=== PATIENT | male | born 1950 | race African-American/Black ===

== ENCOUNTER 2016-07-18 10:28 | Inpatient (IN) | payer MEDICARE ==
[~2016-07-18 10:28] MED LIST: Aspirin (Orange Enteric Coated) 325 mg tab PO SCH
--- NOTE | 2016-07-18 10:36 | EDPRACDOC ---
- General Information Chief Complaint: Neurological Deficit Present Stated Complaint: LEFT SIDE NUMBNESS Time Seen by Provider: 07/18/16 10:31 Home Medications: Home Medications Aspirin [Aspirin EC] 325 mg PO DAILY #100 tablet. 12/22/15 Atorvastatin Calcium [Lipitor] 10 mg PO HS #30 tablet 12/22/15 Amlodipine [Norvasc] 10 mg PO DAILY 06/02/16 Atenolol [Tenormin] 50 mg PO DAILY 07/18/16 Hydrochlorothiazide 12.5 mg PO DAILY 07/18/16 Prazosin HCl [Minipress] 1 mg PO TID 07/18/16 Allergies/Adverse Reactions: Allergies Allergy/AdvReac Type Severity Reaction Status Date / Time No Known Allergies Allergy Verified 07/18/16 10:52 - History of Present Illness Exact Onset of Symptoms: Unknown Date Symptoms Started: 07/17/16 Symptoms Started: Reports: Gradually Symptoms: Reports: Numbness (LEFT ARM AND LEFT LEG) Symptoms Description: Constant Symptom Severity: Reports: Does not affect activitiy Relevant History of: Reports: CVA HPI: PATIENT STATES HE NOTED NUMBNESS IN LEFT ARM AND LEG YESTERDAY. IT PERSISTED SO HE CALLED AN AMBULANCE TODAY. HE NOTES HE HAD SLURRED SPEECH INITIALLY BUT THAT THIS IMPROVED. HX OF COCAINE USE BUT DENIES RECENT USE. NO WEAKNESS. NO DIFFICULTY WALKING. ED Past Medical History - History Reviewed Yes Nurses notes reviewed and agree except as marked Travel Outside of [place] in the Last 3 Months?: No - Patient Medical History Neurological History: Reports: Cerebrovascular Accident (2009 WITH VALVE REPLACEMENT) Cardiac History: Reports: Atrial Fibrillation (Requiring cardioversion in 2013) , Hypertension, Congestive Heart Failure (EF 40% in October of 2011), Hypercholesterolemia, Valvular Heart Disease (AORTIC VALVE REPLACEMENT X 2). Denies: Cardiac Catheterization Respiratory History: Reports: Pneumonia (2015) GI/ History: Reports: Renal Disease (Chronic renal insufficiency) Musculoskeletal History: Reports: Arthritis Psychological History: Reports: Substance Use Disorder (History of cocaine abuse but none in years). Denies: Depression Systemic History: Denies: Cancer Additional Past Medical History: PAIN SYNDROMES Surgical History: Reports: Other (Aortic valve replacement x2). Denies: Cardiac Catheterization - Family Medical History Reports: Hypertension (MOM). Denies: Diabetes, Cancer, Stroke, Cardiac Disorders - Social Medical History Smoking Status: Never smoker Social History: Reports: Cocaine Use (Confidential), Substance Use Disorder ( History of cocaine abuse but none in years) Substance Abuse: Illicit Drugs Lives With: Family Lives In: Home EDM Review of Systems - Review of Systems ROS Negative Except as Marked: Yes All systems reviewed and were negative except as marked Constitutional: No Symptoms Reported. negative: Fever, Chills, Weakness, Fatigue, Loss of Appetite Eyes: No Symptoms Reported. negative: Redness, Blurred Vision, Double Vision, Discharge, Pain, Light Sensitive, Photophobia Ears: No Symptoms Reported. negative: Pain, Hearing Loss, Drainage, Ear Pulling Throat: No Symptoms Reported. negative: Pain, Swelling Nose: No Symptoms Reported. negative: Congestion, Bleeding, Discharge, Injection, Swelling, Deformity, Ecchymosis, Tender, Abrasion, Laceration Mouth: No Symptoms Reported. negative: Pain, Drooling Respiratory: No Symptoms Reported. negative: Cough, Brassy Cough, Barky Cough, Shortness of Breath, Wheezing, Hemoptysis Cardiovascular: No Symptoms Reported. negative: Chest Pain, Palpitations, Syncope, Edema, Orthopnea, PND, Skin Mottling, Cyanosis Gastrointestinal: No Symptoms Reported. negative: Pain, Constipation, Nausea, Vomiting, Diarrhea, Melena, Formula Intolerance Genitourinary: No Symptoms Reported. negative: Dysuria, Hematuria, Frequency, Discharge, Bleeding, Testicular Pain, Neurological: Numbness. negative: Dizziness, Gait Difficulty, Headache, Seizure , Speech Difficulty, Weakness Musculoskeletal: No Symptoms Reported. negative: Neck, Chestwall, Ribs, Back, Shoulder, Arm, Elbow, Forearm, Wrist, Hand, Pelvis, Hip, Femur, Knee, Leg, Ankle , Foot Integumentary: No Symptoms Reported. negative: Itching, Rash, Bruising, Wound Allergic/Immunologic: No Symptoms Reported. negative: Hives, Itching Hematologic: No Symptoms Reported. negative: Lymphadenopathy, Easy Bruising, Easy Bleeding Endocrine: No Symptoms Reported. negative: Weight Gain, Weight Loss Psychiatric: No Symptoms Reported. negative: Anxiety, Depression, Hallucinations, Insomnia, Suicidal - Physical Exam Constitutional: Alert (Awake), No apparent distress Oriented to: Time, Person, Place Last recorded Vital Signs: Oxygen Pulse Oxygen Saturation O2 Device Oxygen Flow Rate Fraction of Inspired Oxygen ( FIO2) - HEENT Head: Normal ( normocephalic) Eye Exam: Normal (PERRL, EOMI, Sclera white) Oropharynx: Normal (Pharynx:Moist without exudate,Gums-no swelling) Tympanic Membrane: Normal ENT EAC: Normal TMJ: Normal Nose: No Symptoms Reported (septum midline) Neck: Normal (FROM, trachea at midline) - Respiratory/Cardiovascular Respiratory: Normal - CTA (BBS clear to auscultation without adventitious sounds ) Cardiovascular: Normal (RRR without murmur, gallop or rub) - GI Auscultation: Normal (NABS) Palpation: Normal (Soft,No rebound or guarding, non distended) Tenderness: Non tender Del Rosario's Sign: Negative - Musculoskeletal Back: Normal (Non-Tender) Extremities: Normal (Normal tone, Pulses 2+ No cyanosis or edema, FROM) - Integumentary Skin: Normal, Warm, Dry Lymphatics: Normal (no adenopathy) - Neurologic Memory Impaired: Normal Motor Function: Normal (Normal tone, Pulses 2+ No cyanosis or edema, FROM) Cranial Nerve: Normal (CN II-X11 intact sensation, strength 5/5) Cerebellar: Normal Mood Description: Normal Perception: Normal NIH Stroke Scale Initial Evaluation Level of Consciousness: Alert LOC- Question: Answers Both Correctly LOC Commands: Both Task Correctly Best Gaze: Normal Visual: No Visual Loss Facial Palsy: Normal Movement Motor Arm LEFT: No Drift Motor Arm RIGHT: No Drift Motor Leg LEFT: No Drift Motor Leg RIGHT: No Drift Limb Ataxia: Absent Sensory: Mild to Mod Sensory Loss (POOR DULL/SHARP DISCRIMINATION IN LEFT ARM AND LEG) Best Language: No Aphasia Dysarthria: Normal Extinction and Inattention: No Abnormality (Neglect) Score: 1out of42 - Action Is patient a candidate for lytic therapy?: No Reason IV Thrombolytics Contraindicated: Other *free text (24 HOURS OLD) - Results 07/18/16 10:39 07/18/16 11:00 - EKG EKG #1 EKG Time: 10:53 -: Yes EKG interpreted by me Rate: bpm: 41 [place]: LAD Rhythm: SB Block: None Hypertrophy: LVH ST: Inf, Nonsp (FLIPPED T- WAVE INFERIOR) - Departure Yes I personally saw and evaluated the patient. Disposition: Admit IP To This Hospital Condition: Fair Final Diagnosis: Left sided numbness, CVA - cerebrovascular accident due to cerebral artery occlusion, Cocaine abuse Education/Counseling Given To: Patient Education/Counseling Given Regarding: Diagnosis, Treatment, Prognosis Decision to Admit Time: 12:36 Decision to admit date: 07/18/16 Decision to admit: from ED - Physician Consulted Hospitalist Time Called: 12:36 Provider Called: Deb Groves Time [employer] Returned Call: 12:37
[2016-07-18 10:54] LABS: AUTOMATED EOSINOPHIL 3.3 % (0-5); AUTOMATED LYMPH 16.4 % (17-44); AUTOMATED MONOCYTE 8.9 % (3-10); AUTOMATED NEUTROPHIL 70.4 % (45-76); MPV 10.2 fL (7.4-10.4)
[2016-07-18 11:07] LABS: PT-INR 1.1
[2016-07-18 11:23] LABS: BLOOD UREA NITROGEN 22 MG/DL (9-20); CALCIUM 9.1 MG/DL (8.4-10.2); CALCULATED OSMOLALITY 276 MOs/Kg (270-290); CHLORIDE 100 mEq/L (98-107); GLUCOSE 98 MG/DL (70-99); SODIUM LEVEL 142 mEq/L (137-146); TOTAL PROTEIN 7.1 G/DL (6.3-8.2)
[2016-07-18 11:23] LABS: ALL NEG? NO
[2016-07-18 11:33] LABS: MDMA* NEG (NEGATIVE); METHAMPHETAMINES NEG (NEGATIVE); OXYCODONE NEG (NEGATIVE)
[2016-07-18] MEDS ORDERED: ASPIRIN (CHEWABLE) 81 MG TAB PO ONE (11:52)
--- NOTE | 2016-07-18 12:09 | DIRPT ---
CLINICAL DATA: Shortness of breath EXAM: PORTABLE CHEST 1 VIEW COMPARISON: 12/20/2015 FINDINGS: Chronic cardiopericardial enlargement. The patient is status post median sternotomy for aortic valve repair. There is no edema, consolidation, effusion, or pneumothorax. Linear scar in the left mid lung. IMPRESSION: Stable exam. No evidence of acute cardiopulmonary disease. Electronically Signed By: Junior Carpenter M.D. On: 07/18/2016 12:06
--- NOTE | 2016-07-18 12:16 | DIRPT ---
CLINICAL DATA: Left-sided weakness and numbness for 2-3 days. EXAM: CT HEAD WITHOUT CONTRAST TECHNIQUE: Contiguous axial images were obtained from the base of the skull through the vertex without intravenous contrast. COMPARISON: 06/02/2016 FINDINGS: There is no acute intracranial hemorrhage or acute infarction or mass lesion. The parenchymal hemorrhage present on the prior exam has resolved. Chronic extensive periventricular white matter small vessel disease and old lacunar infarct in the left basal ganglia are again noted. No acute osseous abnormality. IMPRESSION: No acute abnormality. Old strokes. Extensive chronic small vessel ischemic disease. Resolution of parenchymal hemorrhage since the prior study. Electronically Signed By: Yosi Pastrana M.D. On: 07/18/2016 12:13
[2016-07-18] MEDS ORDERED: ENALAPRILAT 1.25 MG/ML VIAL IV ONE (12:32)
--- NOTE | 2016-07-18 13:28 | HISTPHYS ---
- Chief Complaint WEAKNESS, NUMBNESS - History of Present Illness Mr. Axel Merlos is a 66 year old Afro-[place]ron[place] man who presented to the ED with concerns about weakness and numbness in the left side of his face and left arm. He states that he had a bit of difficulty with his speech yesterday, finding the right words to say, but no slurred speech. He does think that his vision is not as good as it used to be, like he needs to get his glasses changed. These symptoms began sometime yesterday, although he recalls having a little blurred vision around [place] also. He denies any headache, dizziness or trauma. He has not had any loss of use of his arms or legs. - Medical History Cardiac History: Reports: Atrial Fibrillation (Requiring cardioversion in 2013) , Hypertension, Congestive Heart Failure (EF 40% in October of 2011), Hypercholesterolemia, Valvular Heart Disease (AORTIC VALVE REPLACEMENT X 2). Denies: Cardiac Catheterization Respiratory History: Reports: Pneumonia (2014) GI/ History: Reports: Renal Disease (Chronic renal insufficiency) Musculoskeletal History: Reports: Arthritis Systemic History: Denies: Cancer Neurological History: Reports: Cerebrovascular Accident (2009 WITH VALVE REPLACEMENT) Psychological History: Reports: Substance Use Disorder (History of cocaine abuse but none in years). Denies: Depression - Surgical History Reports: Other (Aortic valve replacement x2). Denies: Cardiac Catheterization - Medictions/Allergies Allergies No Known Allergies Allergy (Verified 07/18/16 10:52) Current Medication List: Reviewed Home Medications Aspirin [Aspirin EC] 325 mg PO DAILY #100 tablet. 12/22/15 Atorvastatin Calcium [Lipitor] 10 mg PO HS #30 tablet 12/22/15 Amlodipine [Norvasc] 10 mg PO DAILY 06/02/16 Atenolol [Tenormin] 50 mg PO DAILY 07/18/16 Hydrochlorothiazide 12.5 mg PO DAILY 07/18/16 Prazosin HCl [Minipress] 1 mg PO TID 07/18/16 - Family History Reports: Hypertension (MOM). Denies: Diabetes, Cancer, Stroke, Cardiac Disorders - Social History Travel Outside of US in the Last 3 Months?: No Lives: with Spouse Smoking Status: Never smoker Social History: Reports: Cocaine Use (Confidential), Substance Use Disorder ( History of cocaine abuse but none in years) - Review of Systems Constitutional: No Symptoms Reported Eyes: Blurred Vision Ears: No Symptoms Reported Nose: No Symptoms Reported Mouth: No Symptoms Reported Throat/Neck: No Symptoms Reported Respiratory: No Symptoms Reported Cardiovascular: No Symptoms Reported Gastrointestinal: No Symptoms Reported Genitourinary: No Symptoms Reported Neurological: Dizziness, Numbness (L side of face & L arm), Weakness (L arm) Musculoskeletal:: No Symptoms Reported Integumentary: No Symptoms Reported Allergic/Immunologic: No Symptoms Reported Hematologic: No Symptoms Reported Endocrine: No Symptoms Reported Psychiatric: No Symptoms Reported - Physical Exam Vital Signs: Initial Vitals Temperature 99.1 F 07/18/16 10:30 Pulse Rate 43 L 07/18/16 10:30 Respiratory Rate 18 07/18/16 10:30 Blood Pressure 176/99 07/18/16 10:30 Pulse Oxygen Saturation 98 07/18/16 10:30 Constitutional: No apparent distress, Alert, Well nourished, Well appearing Oriented to: Time, Person, Place - HEENT Head: Normal Eye: Normal (PERRL: EOMI) Oropharynx: Normal Tympanic Membrane: Normal ENT EAC: Normal Nose: No Symptoms Reported Respiratory: Normal - CTA Cardiovascular: Normal (regular rhythm and rate) - GI Auscultation: Normal Palpation: Normal Tenderness: Non tender Del Rosario's Sign: Negative Rectal Exam: Deferred - Musculoskeletal Back: Normal, No Palpable Step-off Extremities: Normal, Pedal Pulse (normal). negative: Clubbing, Cyanosis, Edema Spine: non-tender, full range of motion, normal alignment, normal inspection - Integumentary Skin: Warm, Dry Lymphatics: Normal - Neurologic Memory Impaired: Normal Motor Function: Normal (no motor deficit) Cranial Nerve: Normal Cerebellar: Normal Mood Description: Anxious Thought: Coherent Perception: Normal decreased sensation to light touch and 2 point discrimination on left side of face and L arm - Focused CV Perfusion Exam Vital Signs: Last Vital Signs Temp 99.1 F 07/18/16 10:30 Pulse 43 L 07/18/16 13:05 Resp 18 07/18/16 13:05 BP 187/96 H 07/18/16 13:05 Pulse Ox 97 07/18/16 13:05 - Lab Results Laboratory Tests 07/18/16 07/18/16 07/18/16 10:39 10:39 11:00 WBC 8.7 Hgb 15.8 Hct 46.3 Plt Count 175 Neut % (Auto) 70.4 Lymph % (Auto) 16.4 L [place] % (Auto) 8.9 PT 11.2 INR 1.1 APTT 25.0 Sodium 142 Potassium 3.7 Chloride 100 Carbon Dioxide 30 Anion Gap 16 BUN 22 H Creatinine 1.50 H Estimated GFR (MDRD) 57 L Glucose 98 Calculated Osmolality 276 Calcium 9.1 Troponin I < 0.01 C-Reactive Prot, Quant TSH Urine Cocaine Screen 07/18/16 07/18/16 07/18/16 11:00 11:05 14:20 WBC Hgb Hct Plt Count Neut % (Auto) Lymph % (Auto) [place] % (Auto) PT INR APTT Sodium Potassium Chloride Carbon Dioxide Anion Gap BUN Creatinine Estimated GFR (MDRD) Glucose Calculated Osmolality Calcium Troponin I C-Reactive Prot, Quant 5.9 TSH 1.44 Urine Cocaine Screen *positive* H 07/18/16 07/18/16 14:30 17:00 WBC Hgb Hct Plt Count Neut % (Auto) Lymph % (Auto) [place] % (Auto) PT INR APTT Sodium Potassium Chloride Carbon Dioxide Anion Gap BUN Creatinine Estimated GFR (MDRD) Glucose Calculated Osmolality Calcium Troponin I < 0.01 < 0.01 C-Reactive Prot, Quant TSH Urine Cocaine Screen - Diagnostic Findings CT HEAD: IMPRESSION: No acute abnormality. Old strokes. Extensive chronic small vessel ischemic disease. Resolution of parenchymal hemorrhage since the prior study. Electronically Signed By: Yosi Pastrana M.D. On: 07/18/2016 12:13 MRI HEAD: IMPRESSION: 1. Hemorrhagic infarct in the right thalamus is new since the prior MRI. Given the appearance of the CT scan and lack of significant restricted diffusion, this is less likely to be acute. It is more likely subacute to early chronic. 2. Progressive white matter changes in the left centrum semi ovale. 3. Advanced periventricular and subcortical white matter disease bilaterally likely reflects the sequela of chronic microvascular ischemia. 4. Remote lacunar infarcts of the cerebellum bilaterally are stable. These results were called by telephone at the time of interpretation on 07/18/2016 at 2:[address] MARIELENA SWAN MD, who verbally acknowledged these results. Electronically Signed By: Michoacano Mares M.D. On: 07/18/2016 14:45 CXR:FINDINGS: Chronic cardiopericardial enlargement. The patient is status post median sternotomy for aortic valve repair. There is no edema, consolidation, effusion, or pneumothorax. Linear scar in the left mid lung. IMPRESSION: Stable exam. No evidence of acute cardiopulmonary disease. Electronically Signed By: Junior Carpenter M.D. On: 07/18/2016 12:06 - Assessment (1) Cerebrovascular accident (CVA) with intracranial hemorrhage I61.9 - NONTRAUMATIC INTRACEREBRAL HEMORRHAGE, UNSPECIFIED Acute Present on Admission: Yes Patient initially thought to have an infarct, started on aspirin and Lovenox. Will discontinue these in the face of intracranial hemorrhage. 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 Needs to be maintained below 180, preferably below 170. Will start patient on NTP q 6H & IV Hydralazine PRN. Avoid Labetolol due to bradycardia, but NTG infusion or nitroprusside infusion OK if needed. Also IV Vasotec acceptable. (3) Cardiomyopathy I42.9 - CARDIOMYOPATHY, UNSPECIFIED Chronic Present on Admission: Yes Qualifiers: Cardiomyopathy type: ischemic Qualified Code(s): I25.5 - Ischemic cardiomyopathy Ejection fraction in the past noted to be 40-45% with mild diffuse hypokinesis. Monitor closely in the face of acute CVA. Patient had echocardiogram in December of 2015: ischemic cardiomyopathy, LVH, diastolic dysfunction. (4) Cocaine abuse F14.10 - COCAINE ABUSE, UNCOMPLICATED Chronic Present on Admission: Yes Patient states he use cocaine on the day prior to admission. This is likely cause of malignant hypertension leading to his stroke. He is dedicated to quitting cocaine use. Case Care Discussed with: Patient, Nursing Staff Total Time: 75 min Critical Care: Yes Couseling Time (>50% in counseling/coordination): Yes Code: 291
[2016-07-18] MEDS ORDERED: AMLODIPINE 10 MG TAB PO ONE (14:28)
[2016-07-18] MEDS ORDERED: HYDROCHLOROTHIAZIDE 12.5 MG CAP PO ONE (14:28)
[2016-07-18] MEDS ORDERED: hydrALAZINE 20 MG/ML VIAL IV ONE (14:34)
--- NOTE | 2016-07-18 14:48 | DIRPT ---
CLINICAL DATA: Left-sided numbness for 2 days. Drug abuse. EXAM: MRI HEAD WITHOUT AND WITH CONTRAST TECHNIQUE: Multiplanar, multiecho pulse sequences of the brain and surrounding structures were obtained without and with intravenous contrast. CONTRAST: 20 mile MultiHance COMPARISON: MRI brain 12/21/2015 FINDINGS: A hemorrhagic infarct is present within the right thalamus extending into the right cerebral peduncle. There is no associated restricted diffusion. This was not present 7 months prior There is also progression of white matter disease in the left centrum semi ovale since the prior exam. Advanced confluent periventricular and scattered subcortical white matter changes are otherwise similar to the prior exam. Remote lacunar infarcts are again seen within the cerebellum bilaterally. White matter changes are again noted within the brainstem. The internal auditory canals are within normal limits. Flow is present in the major intracranial arteries. The globes orbits are intact. The paranasal sinuses and mastoid air cells are clear. The skullbase is within normal limits. Midline structures are otherwise unremarkable IMPRESSION: 1. Hemorrhagic infarct in the right thalamus is new since the prior MRI. Given the appearance of the CT scan and lack of significant restricted diffusion, this is less likely to be acute. It is more likely subacute to early chronic. 2. Progressive white matter changes in the left centrum semi ovale. 3. Advanced periventricular and subcortical white matter disease bilaterally likely reflects the sequela of chronic microvascular ischemia. 4. Remote lacunar infarcts of the cerebellum bilaterally are stable. These results were called by telephone at the time of interpretation on 07/18/2016 at 2:[address] MARIELENA SWAN MD, who verbally acknowledged these results. Electronically Signed By: Michoacano Mares M.D. On: 07/18/2016 14:45
[2016-07-18] MEDS ORDERED: ENOXAPARIN 60 MG/0.6 ML PFS SQ SCH (18:00)
[2016-07-18] MEDS: ATORVASTATIN 20 MG TAB PO SCH (18:13)
[2016-07-18] MEDS ORDERED: Vaccine Screening Complete SCH (20:00)
[2016-07-18] MEDS ORDERED: hydrALAZINE 20 MG/ML VIAL IV PRN (21:28)
[2016-07-19] MEDS: NITROGLYCERINE 2 % OINTMENT PACK TOP SCH ×4 (00:05→17:02)
[2016-07-19 04:44] VITALS: BMI 31.1
[2016-07-19 05:41] LABS: LDL (calc.) 44.8 MG/DL (<100); VLDL (calc.) 26.2 MG/DL (5-40)
[2016-07-19 14:34] LABS: HIV SCREEN 4th GEN Non Reactive (Non Reactive)
--- NOTE | 2016-07-19 15:11 | GENMEDPROG ---
Chief Complaint: hemorrhagic CVA, HCVD, [place]vall CHF, cocaine abuse, cardiomyopathy Current Medication List: Reviewed Currently: Reports: Alcohol Hx, Anna PT/OT, Other (denies headache, no weakness or numbness). Denies: Tobacco Use/Hx, Nausea and Vomiting, Reflux Sx, Fever/ Chills, Chest Pain, Ambulating DVT Prophylaxis: No Current Order - Physical Examination Vital Signs and I&O: Last Vital Signs Temp 97.4 F L 07/19/16 10:38 Pulse 47 L 07/19/16 14:00 Resp 18 07/19/16 10:38 BP 126/66 07/19/16 10:38 Pulse Ox 98 07/19/16 10:38 Oxygen Pulse Oxygen Saturation 98 O2 Device Room Air Oxygen Flow Rate Fraction of Inspired Oxygen ( FIO2) Intake & Output 07/16/16 07/17/16 07/18/16 07/19/16 23:59 23:59 23:59 23:59 Intake Total 445 480 Output Total 275 200 Balance 170 280 Patient's weight 90.083 kg 90.083 kg General: Alert, Oriented x3, Cooperative, Well appearing, Well nourished HEENT: Normal, PERRLA, EOMI, Anicteric Sclera, Mucous membr. moist/pink, Normocephalic Neck: Non-tender, Full range of motion, Normal Trachea alignment, Normal inspection, No Masses palpable, Supple. negative: JVD, Muscle spasm Lymphatics: Normal Respiratory: Normal - CTA Cardiovascular: Regular rate and rhythm, Normal S1, Normal S2 GI: Normal bowel sounds, Soft, Non tender, No masses Extremities/Musculoskeletal: Normal pulses. negative: Edema Skin: Warm,Dry and Intact, No rashes, No breakdown Neurological: Normal speech, Strength at 5/5 X4 ext, Normal tone, Cranial nerves 3-12 NL, DTR Intact Psych/Mental Status: Appropriate, Normal Affect, Cooperative Lab/DI/Studies Reviewed: Selected Entries 07/18/16 13:35 Pulse Rate 41 L Respiratory 18 Rate Blood Pressure 129 Mean Blood Pressure 192/98 H Pulse Oxygen 97 Saturation Laboratory Tests 07/19/16 07/19/16 07/19/16 00:04 05:08 05:10 POC Capillary Glucose 101 H 91 Triglycerides 131 Cholesterol 102 LDL Cholesterol, Calc 44.8 VLDL Cholesterol, Calc 26.2 HDL Cholesterol 31.0 L Cholesterol/HDL Ratio 3.3 07/19/16 07/19/16 10:40 16:29 POC Capillary Glucose 87 97 Triglycerides Cholesterol LDL Cholesterol, Calc VLDL Cholesterol, Calc HDL Cholesterol Cholesterol/HDL Ratio - Assessment (1) Cerebrovascular accident (CVA) with intracranial hemorrhage Acute I61.9 - NONTRAUMATIC INTRACEREBRAL HEMORRHAGE, UNSPECIFIED Comment/ Plan: Patient initially thought to have an infarct, started on aspirin and Lovenox. Have discontinued these in the face of small intracranial hemorrhage. He has had some bradycardia and hypertension. Goal for SBP is 140-160. 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 Needs to be maintained below 180, preferably below 170. Started patient on NTP q 6H & IV Hydralazine PRN. Avoiding Labetolol/beta- blockers due to bradycardia, but NTG infusion or nitroprusside infusion OK if needed. Also IV Vasotec acceptable. (3) Cardiomyopathy Chronic I42.9 - CARDIOMYOPATHY, UNSPECIFIED Qualifiers: Cardiomyopathy type: ischemic Qualified Code(s): I25.5 - Ischemic cardiomyopathy Comment/Plan: Ejection fraction in the past noted to be 40-45% with mild diffuse hypokinesis. Monitor closely in the face of acute CVA. Patient had echocardiogram in December of 2015: ischemic cardiomyopathy, LVH, diastolic dysfunction. (4) Cocaine abuse Chronic F14.10 - COCAINE ABUSE, UNCOMPLICATED Comment/Plan: Patient states he use cocaine on the day prior to admission. This is likely cause of malignant hypertension leading to his stroke. He is dedicated to quitting cocaine use. - Plan Probable discharge 1-2 days if no new neurologic deficits and repeat CT of head shows no new bleed. No Aspirin, NSAID, or anticoagulants for at least 2-4 weeks. Can resume Plavix in 2 weeks. Keep BP under strict control. Disposition Plan: Patient is to keep appointment with neurologist in [place] in August. Case Care Discussed with: Patient, Nursing Staff Education/Counseling Given To: Patient Education/Counseling Given Regarding: Diagnosis, Treatment, Prognosis Critical Care: Yes Couseling Time (>50% in counseling/coordination): Yes Code: 291
[2016-07-19] MEDS: ATORVASTATIN 20 MG TAB PO SCH (17:02)
[2016-07-19] MEDS ORDERED: Pharmacy Review for Metformin - IV Contrast Given SCH (21:00)
[2016-07-20] MEDS: ISOSORBIDE DINITRATE 20 MG TAB PO SCH ×2 (05:32→12:05)
[2016-07-20 05:39] LABS: BLOOD UREA NITROGEN 24 MG/DL (9-20); CALCIUM 8.9 MG/DL (8.4-10.2); CALCULATED OSMOLALITY 277 MOs/Kg (270-290); CHLORIDE 99 mEq/L (98-107); GLUCOSE 99 MG/DL (70-99); SODIUM LEVEL 142 mEq/L (137-146)
--- NOTE | 2016-07-20 09:33 | DIRPT ---
CLINICAL DATA: Follow-up CVA. EXAM: CT HEAD WITHOUT CONTRAST TECHNIQUE: Contiguous axial images were obtained from the base of the skull through the vertex without intravenous contrast. COMPARISON: MRI and CT 07/18/2016 FINDINGS: The previously seen hemorrhagic infarct in the right thalamus by MRI is not appreciated by CT. Extensive chronic microvascular changes throughout the deep white matter. Old left thalamic lacunar infarct, stable. No new infarct or hemorrhage visualized. No midline shift. IMPRESSION: Unable to visualize the hemorrhagic infarct within the right thalamus seen on previous MRI. Atrophy, chronic small vessel disease. Old left thalamic lacunar infarct. Electronically Signed By: Octavio Bautista M.D. On: 07/20/2016 09:30
--- NOTE | 2016-07-20 11:44 | PCM.DCS92 ---
- Final/Secondary Discharge Diagnosis (1) Cerebrovascular accident (CVA) with intracranial hemorrhage Acute I61.9 - NONTRAUMATIC INTRACEREBRAL HEMORRHAGE, UNSPECIFIED Present on Admission: Yes Comment: Has aspirin and Lovenox were initially started but were discontinued when hemorrhage was noted. Aspirin or other anti-platelet agents may be able to be restarted in 2 weeks. 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 He was also noted to be bradycardic. Medications were given to keep his blood pressure less than 180. The patient's blood pressure is better controlled. Per the pharmacy he has been noncompliant with his medications and in fact never picked up the most recent prescriptions that were written by his primary care provider. He was cautioned to be compliant with medications. (3) Cardiomyopathy Chronic I42.9 - CARDIOMYOPATHY, UNSPECIFIED Present on Admission: Yes ischemic I25.5 - Ischemic cardiomyopathy Comment: Ejection fraction in the past noted to be 40-45% with mild diffuse hypokinesis. Monitor closely in the face of acute CVA. Patient had echocardiogram in December of 2015: ischemic cardiomyopathy, LVH, diastolic dysfunction. (4) Cocaine abuse Chronic F14.10 - COCAINE ABUSE, UNCOMPLICATED Present on Admission: Yes Comment: Patient states he use cocaine on the day prior to admission. This is likely cause of malignant hypertension leading to his stroke. He is dedicated to quitting cocaine use. Discharge Disposition: Home Discharge Condition: Fair Cognitive Discharge Status: Unimpaired Fuctional Discharge Status: Fall Risk, Ambulatory Dysfunction (Due to decreased balance) Physician Follow up/Referrals: Pj Hooker II, MD [Staff Physician] - 08/02/16 4:15 pm New Prescriptions: Amlodipine [Norvasc] 10 mg PO DAILY #30 tab Atenolol [Tenormin] 50 mg PO DAILY #30 tablet Atorvastatin Calcium [Lipitor] 10 mg PO HS #30 tablet Hydrochlorothiazide 12.5 mg PO DAILY #30 tablet Prazosin HCl [Minipress] 1 mg PO TID #90 capsule O2 Device: Room Air Diet at Discharge: Heart Healthy Activity: As Tolerated, No Driving - DC Summary Notes Home Health Need / Correction Services:: The patient was seen by Physical therapy during this hospitalization. They felt outpatient rehab would be helpful and this has been ordered. The patient states he would have alternate transportation to outpatient rehab until he is able to drive. Hospital Course Note:: Discharge summary on patient named CHICO WALKER admitted to [facility] on 07/18/16 by Deb Groves MD. Date of discharge is [July 20, 2016.]. Mr. walker is a 66-year-old male who presented to the emergency department on 10/2016 complaining of a 1 day history of numbness on the left side of his face and arm. He noticed weakness in the same area as well. He had some difficulty with word finding and some blurred vision. He had no headache or trauma. Physical exam was notable for decreased sensation to light touch and discrimination on the left side of his face as well as his left arm. His blood pressure was elevated in the emergency department and was initially 176/99. Initial head CT showed previous stroke but no evidence of new bleeding. MRI of his head did show a hemorrhage in the brainstem on the right. The patient's urine drug screen came back positive for cocaine. The patient was admitted to a telemetry bed with a diagnosis of CVA with intracranial hemorrhage. Aspirin and Lovenox had been given in the emergency department but were discontinued when the bleed was noted. His systolic blood pressure was quite high and ultimately was greater than 220. He was given medication to lower it to less than 180. He was started on IV hydralazine as well as nitropaste. He admitted to cocaine use on the day of his symptoms. He was counseled on the fact that cocaine use can lead to malignant hypertension. The patient did well. He was seen by Physical therapy. They felt he could be followed up best in the outpatient setting. His blood pressure was fairly well controlled. Of note pharmacy attempted to verify his medications with his outpatient pharmacy. The patient had not in fact filled some of his prescriptions in the past. He was counseled on maintaining blood pressure follow up with his primary care physician as well as compliant with his medications. Follow up CT scan was done to be sure there was no additional bleeding. No bleeding was noted on CT on the day of discharge. The patient was felt to be stable for discharge. He was eating well. He had no facial droop. His sensation had improved but was not quite back to normal on the left side of his face. He was to follow up with Dr. Hooker. In 2 weeks patient can be considered for reinstitution of his aspirin or anti-platelet therapies as appropriate. Patient to follow up with the emergency department for any increase in his symptoms. He was strongly encouraged to abstain from cocaine use. Code: 77977 (>30min.) Stroke DC - Education Provide the following patient education: HemorrhagicStroke(WarningSigns & Symptoms, ActivatingEMS, RiskFactors) - Discharge Medications Statin Ordered: Home Medication Continued at Discharge Antithrombotic Ordered: Contraindicated (See Below) Antithrombotic Contraindicated: Active Bleeding - Physical Exam Vital Signs: Last Vital Signs Temp 98.8 F 07/20/16 08:27 Pulse 53 L 07/20/16 10:07 Resp 20 07/20/16 08:27 BP 122/77 07/20/16 08:27 Pulse Ox 98 07/20/16 08:27 Oxygen Pulse Oxygen Saturation 98 O2 Device Room Air Oxygen Flow Rate Fraction of Inspired Oxygen ( FIO2) Constitutional: No apparent distress, Alert, Well nourished, Well appearing Oriented to: Time, Person, Place - HEENT Head: Normal Eye: Normal (PERRL: EOMI) Oropharynx: Normal Tympanic Membrane: Normal ENT EAC: Normal Nose: No Symptoms Reported - Respiratory/Cardiovascular Respiratory: Normal - CTA Cardiovascular: Bradycardia - GI Auscultation: Normal Palpation: Normal Tenderness: Non tender Del Rosario's Sign: Negative Rectal Exam: Deferred - Musculoskeletal Back: Normal, No Palpable Step-off Extremities: Normal, Pedal Pulse (normal). negative: Clubbing, Cyanosis, Edema - Integumentary Skin: Warm, Dry Lymphatics: Normal - Neurologic Memory Impaired: Normal Motor Function: Normal Cranial Nerve: Deficit (Decreased sensation to light touch in the left side of his face but no facial droop noted.) Cerebellar: Normal, Other (He states he is off balance with walking but his bedside cerebellar testing is normal) Mood Description: Normal Thought: Coherent Perception: Normal
[2016-07-20 11:58] VITALS: BP 135/70; TEMP 98.2
[2016-07-20 12:08] VITALS: PULSE 47
== END 2016-07-20 13:25 | disposition home or self-care (01) | DRG 65 ==
LOC: ED 10:28 → EDINP 13:18 → PCU 14:48
PROVIDERS: ADMIT Family Medicine; ATTEND Family Medicine
DX: I62.9 Nontraumatic intracranial hemorrhage, unspecified (principal); G81.94 Hemiplegia, unspecified affecting left nondominant side; I11.0 Hypertensive heart disease with heart failure; I50.30 Unspecified diastolic (congestive) heart failure; I48.91 Unspecified atrial fibrillation; R29.810 Facial weakness; H53.8 Other visual disturbances; I25.2 Old myocardial infarction; F14.10 Cocaine abuse, uncomplicated; E78.00 Pure hypercholesterolemia, unspecified; M19.90 Unspecified osteoarthritis, unspecified site; Z86.73 Personal history of transient ischemic attack (TIA), and cerebral infarction without residual deficits; Z79.82 Long term (current) use of aspirin; Z79.899 Other long term (current) drug therapy; R29.701 NIHSS score 1
CPT/HCPCS: 36415; 70450; 70553; 71010; 80048; 80053; 80061; 80307; 82962; 83090; 84443; 84484; 85025; 85610; 85651; 85730; 86038; 86140; 86592; 87389; 93005; 96372; 96374; 97162; 97165; 99285; A9577; J0360; J1650; J3490